=== PATIENT | female | born 1955 | race Caucasian/White ===

== ENCOUNTER → 2017-06-27 | Outpatient (CLI) | payer BC ==
[~2017-06-27] MED LIST: ATIVAN1 MG PO; LORATADINE10 M2 PO; MACROBID100 MG PO; PRILOSEC OTC20 MG PO; ZZZQUIL25 MG PO; [UNRECOGNIZED DRUG - CODE] PO; [UNRECOGNIZED DRUG - OTHER] PO; [UNRECOGNIZED DRUG - OTHER] TD
== END | disposition home or self-care (01) ==
LOC: CDC 09:47
DX: F32.2 Major depressive disorder, single episode, severe without psychotic features (principal); R94.31 Abnormal electrocardiogram [ECG] [EKG]
CPT/HCPCS: 93000

== ENCOUNTER → 2018-02-06 | Outpatient (CLI) | payer BC | END | disposition home or self-care (01) | LOC: EEG 09:47 | DX: R41.82 Altered mental status, unspecified (principal) | CPT/HCPCS: 95954 ==